=== PATIENT | female | born 1960 | race Caucasian/White ===

== ENCOUNTER → 2020-12-15 | Outpatient (CLI) | payer BC ==
[2016-08-21 12:48] VITALS: BP 123/61
[~2020-12-15] MED LIST: ACET325T9 PO; ATOR10TA60 PO; FLUT16SP NS; FLUT1BLS3 IH; GABA600T7 PO; HYDR-2765 PO; IBUP-1007 PO; MECL-75 PO; VENTOLIN HFA18 GM INH
--- NOTE | 2020-12-15 22:18 | KCIC ---
MRI left knee without contrast dated 12/15/2020. No comparison available. CLINICAL INDICATION: Pain and popping. TECHNIQUE: Routine multiplanar multisequence MR imaging of left knee performed. No contrast administered. FINDINGS: There is a geographic zone of serpiginous signal abnormality within the distal femoral diametaphysis centrally. Measures up to 6.1 cm craniocaudal dimension and extends to the level of the physeal scar. Additional serpiginous zones of signal abnormality in the posterior aspects of the medial and latera l femoral condyle. There is a similar-appearing focus within the medial tibial plateau. Associated mi ld patchy subchondral edema. Small serpiginous zone is also noted at the lateral femoral trochlea ant eriorly. Mild tricompartmental hypertrophic changes with mild thinning and surface irregularity of the articul ar cartilage throughout. Near full-thickness cartilage loss at the medial femoral trochlea and medial femoral condyle. There is a moderate size joint effusion. Moderate-sized popliteal cyst with fluid tracking along the medial head gastrocnemius muscle. No definite loose body. Anterior cruciate and posterior cruciate ligaments intact. Medial and lateral collateral complexes ar e intact. Iliotibial band, popliteus tendon and pes anserine complex within normal limits. Quadriceps and patellar tendon are intact. No abnormality of the medial or lateral retinaculum. There is mild patchy superficial infrapatellar edema, nonspecific. Complex signal at the posterior horn of medial meniscus with focal radial tear. There is also some li near extension of signal to the tibial articular surface near the posterior horn/body junction. Anter ior horn is intact. There is blunted morphology of the medial meniscal root. Lateral meniscus is normal in morphology and signal. IMPRESSION: 1. Multifocal areas of bone infarction/osteonecrosis involving the distal femur and proximal tibia as detailed above. 2. Complex tear posterior horn and body of medial meniscus. 3. Moderate size joint effusion with moderate-sized ruptured popliteal cyst. 4. Mild tricompartmental degenerative arthrosis and chondromalacia. Electronically signed by: Fahad Rivera MD (12/15/2020 10:15 PM) [id number]
== END ==
LOC: KCIC MRI 13:01
PROVIDERS: ATTEND Orthopaedic Surgery
DX: M17.12 Unilateral primary osteoarthritis, left knee (principal); M94.262 Chondromalacia, left knee; M25.462 Effusion, left knee
CPT/HCPCS: 73721

== ENCOUNTER → 2021-01-05 | Outpatient (CLI) | payer BC ==
[2016-08-21 12:48] VITALS: BP 123/61
== END ==
LOC: LAB 11:43
PROVIDERS: ATTEND Orthopaedic Surgery
DX: Z01.812 Encounter for preprocedural laboratory examination (principal); S83.232A Complex tear of medial meniscus, current injury, left knee, initial encounter; Z20.822 Contact with and (suspected) exposure to COVID-19; X58.XXXA Exposure to other specified factors, initial encounter; Y93.89 Activity, other specified; Y92.89 Other specified places as the place of occurrence of the external cause; Y99.8 Other external cause status
CPT/HCPCS: U0003

== ENCOUNTER 2021-01-09 12:03 | Day surgery (SDC) | payer BC ==
--- NOTE | 2021-01-08 13:15 | PDOC1 ---
History and Physical Date of Admission Date of Admission 01/09/21 Identification/Chief Complaint Chief Complaint left knee pain Source Source: Chart review, Patient History of Present Illness History of Present Illness 60-year-old woman with left knee pain. 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 She describes an injury several weeks ago with popping in her left knee while pushing off in moving between bleachers. She locates this pain medially with soreness and pain "up and down my leg". Her pain wakes her up at night. She takes ibuprofen, aspercreme with lidocaine, and acetaminophen, as prescribed by Dr. Ferguson, although this only helps for 2 hours. Denies any history of DVT or current smoking; she recently had a scan with a granite installer, Dr. Ambrose Gomez at [facility], that ruled out any clot but showed apparent D-Dimer elevation. No known clotting disorder. Past Medical History Cardiovascular: Hyperlipidemia Pulmonary: COPD Endocrine: Diabetes Past Surgical History Past Surgical History: No pertinent history Family History Family History mother Social History Smoke: Quit Current Medications Current Medications Current Medications Bupivacaine HCl/ Epinephrine Bitart (Sensorcain-Epi 0.25% Kit) 30 ml STK-MED ONCE .ROUTE ; Start 01/06/21 at 15:02; Stop 01/06/21 at 15:03; Status DC Fentanyl Citrate (Fentanyl 2ml Vial) 25 mcg PRN Q5MIN PRN IVP MILD PAIN 1-3; Start 01/09/21 at 06:00; Stop 01/10/21 at 05:59 Fentanyl Citrate (Fentanyl 2ml Vial) 50 mcg PRN Q5MIN PRN IVP MODERATE PAIN 4- 6; Start 01/09/21 at 06:00; Stop 01/10/21 at 05:59 Morphine Sulfate (Morphine Sulfate) 1 mg PRN Q10MIN PRN IVP SEVERE PAIN 7-10; Start 01/09/21 at 06:00; Stop 01/10/21 at 05:59 Ringer's Solution 1,000 ml @ 30 mls/hr Q24H IV ; Start 01/09/21 at 06:00; Stop 01/09/21 at 17:59 Hydromorphone HCl (Dilaudid) 0.5 mg PRN Q10MIN PRN IVP SEVERE PAIN 7-10, 2nd CHOICE; Start 01/09/21 at 06:00; Stop 01/10/21 at 05:59 Prochlorperazine Edisylate (Compazine) 5 mg PACU PRN PRN IVP NAUSEA, MRX1; Start 01/09/21 at 06:00; Stop 01/10/21 at 05:59 Cefazolin Sodium/ Dextrose 50 ml @ 100 mls/hr 1X PREOP PRN IV PRIOR TO PROCEDURE; Start 01/09/21 at 06:00; Stop 01/09/21 at 18:00 Active Scripts Active Meclizine Hcl 25 Mg Tablet 1 Tab PO PRN TID Reported Tylenol (Acetaminophen) 325 Mg Tablet 650 Mg PO PRN Q6-8HRS PRN Ibuprofen 600 Mg Tablet 600 Mg PO TID PRN Gabapentin 600 Mg Tablet 300 Mg PO HS Atorvastatin Calcium 10 Mg Tablet 10 Mg PO DAILY Trelegy Ellipta 100-62.5-25 (Fluticasone/Umeclidin/Vilanter) 1 Each Blst.w.dev 1 Puff IH DAILY Ventolin Hfa Inhaler (Albuterol Sulfate) 18 Gm Hfa.aer.ad 2 Puff INH PRN Q4-6HRS PRN Fluticasone Propionate Nasal [place] (Fluticasone Propionate) 16 Gm [place].susp 2 [place] NS DAILY Allergies Allergies: Coded Allergies: No Known Drug Allergies (Unverified , 08/21/16) Physical Exam General: Alert, Cooperative HEENT: Atraumatic Lungs: Normal air movement Heart: RRR Abdomen: Soft Extremities: Other (The LEFT knee shows normal alignment, no masses. There is no effusion. There is tenderness at the medial joint line. Rosa's test is po sitive. There is medial joint line pain with deep flexion and especially with rotation of the tibia. The lateral joint line shows no tenderness. Range of motion is 0-135 degrees. There is trace patellofemoral crepitus. The knee is stable to varus and valgus stress without subluxation or laxity. The ACL feels intact on Cony testing. Muscle strength is normal (5/5) for quadriceps and hamstrings, and muscle tone is normal. The skin is normal with no scars, rashes, lesions or ulcers. Light touch sensation is intact. No edema and no varicosities. Dorsalis pedis pulse is intact and capillary refill is normal.) [facility] [address] [place] [address] IMAGING REPORT Signed PATIENT: ANDREA MOREAU ACCOUNT: [id number] : 1960 LOCATION: [facility] AGE: 60 SEX: F EXAM STATUS: PRE CLI ORD. PHYSICIAN: ANASTASIA LINDA MD REASON: PROCEDURE: KNEE BILAT 2V Examination: 1. Bilateral AP standing knees. 2. Bilateral knees lateral and sunrise views. INDICATION: Bilateral knee pain. No known injury. No relevant comparisons FINDINGS: AP standing bilateral knees show minimal medial right knee joint space narrowing and osteophytic spurring on the medial femoral condyle but otherwise symmetric alignment with an osteochondroma incidentally present on the medial proximal tibial metaphysis in the right knee. [place] and lateral views of the right knee show small right joint effusion but the bones otherwise are unremarkable. Apart from a minimal medial joint space narrowing, no significant degenerative changes are appreciated in the right knee. The left knee likewise show smooth articular margins with preserved joint spaces. No significant left knee joint effusion. IMPRESSION: Minimal right knee medial compartment degenerative changes with a trace joint effusion and an incidental osteochondroma that could be evaluated in greater detail if it is a potential source of pain with MRI. The left knee is negative. Electronically signed by: Bartolome Serna MD (11/24/2020 1:19 PM) [id number] DICTATED and SIGNED BY: BARTOLOME SERNA MD DATE: 11/24/[address] [facility] [id number] [place] [id number] IMAGING REPORT Signed PATIENT: ANDREA MOREAU ACCOUNT: [id number] : 1960 LOCATION: [facility] MRI AGE: 60 SEX: F EXAM STATUS: REG CLI ORD. PHYSICIAN: ANASTASIA LINDA MD REASON: LEFT KNEE PAIN PROCEDURE: LOWER EXT JOINT WO LT MRI left knee without contrast dated 12/15/2020. No comparison available. CLINICAL INDICATION: Pain and popping. TECHNIQUE: Routine multiplanar multisequence MR imaging of left knee performed. No contrast administered. FINDINGS: There is a geographic zone of serpiginous signal abnormality within the distal femoral diametaphysis centrally. Measures up to 6.1 cm craniocaudal dimension and extends to the level of the physeal scar. Additional serpiginous zones of signal abnormality in the posterior aspects of the medial and lateral femoral condyle. There is a similar-appearing focus within the medial tibial plateau. Associated mild patchy subchondral edema. Small serpiginous zone is also noted at the lateral femoral trochlea anteriorly. Mild tricompartmental hypertrophic changes with mild thinning and surface irregularity of the articular cartilage throughout. Near full-thickness cartilage loss at the medial femoral trochlea and medial femoral condyle. There is a moderate size joint effusion. Moderate-sized popliteal cyst with fluid tracking along the medial head gastrocnemius muscle. No definite loose body. Anterior cruciate and posterior cruciate ligaments intact. Medial and lateral collateral complexes are intact. Iliotibial band, popliteus tendon and pes anserine complex within normal limits. Quadriceps and patellar tendon are intact. No abnormality of the medial or lateral retinaculum. There is mild patchy superficial infrapatellar edema, nonspecific. Complex signal at the posterior horn of medial meniscus with focal radial tear. There is also some linear extension of signal to the tibial articular surface near the posterior horn/body junction. Anterior horn is intact. There is blunted morphology of the medial meniscal root. Lateral meniscus is normal in morphology and signal. IMPRESSION: 1. Multifocal areas of bone infarction/osteonecrosis involving the distal femur and proximal tibia as detailed above. 2. Complex tear posterior horn and body of medial meniscus. 3. Moderate size joint effusion with moderate-sized ruptured popliteal cyst. 4. Mild tricompartmental degenerative arthrosis and chondromalacia. Electronically signed by: Fahad Rivera MD (12/15/2020 10:15 PM) [id number] DICTATED and SIGNED BY: FAHAD RIVERA MD DATE: 12/15/202208 VTE Prophylaxis Ordered VTE Prophylaxis Devices: Yes VTE Pharmacological Prophylaxi: Yes Assessment/Plan Assessment/Plan She does have osteonecrosis of the left femur which likely explains the elevated D-dimer. I believe the osteonecrosis itself is actually asymptomatic at this time. Her sharp medial knee pain is more typical of meniscus tear pathology pain, and she does have a meniscus tear on MRI. I recommend knee arthroscopy and meniscus surgery now, and follow her osteonecrosis with x-rays etc. at which point in the future she might require knee replacement surgery if the osteonecrosis progresses to the level of the joint. None of the osteonecrosis currently seems to cause any intra-articular symptoms. Her MRI shows a medial meniscus tear with periarticular osteonecrosis of her distal femur and proximal tibia. We reviewed her report with x-rays together and discussed the natural history of the condition. Specifically, my suspicion is her osteonecrosis is secondary to her history of chronic steroid use, and furthermore, her recently elevated D-Dimer levels would be explained by her osteonecrosis. Risks, benefits, and alternatives to treatment were reviewed, including the difference in indications between arthroscopic meniscectomy vs knee replacement. Although she will likely eventually warrant knee replacement with stemmed components, her symptoms seem almost completely meniscal in nature and I don't see any indication of collapse or further compelling reason to instead recommend knee replacement. After discussing options for treatment, she has elected to proceed with surgery. Plan for left knee arthroscopy with medial meniscectomy. We discussed potential risks of arthroscopic surgery, including risks of bleeding, infection, progressive arthritis, blood clots, or other potential surgical or anesthetic complications. We also discussed postoperative treatment and expectations including progression of arthritis following knee arthroscopy. All of her questions were answered and she desires to proceed with left knee arthroscopy and medial meniscectomy at a mutually convenient date Justifications for Admission Other Justification ANASTASIA LINDA MD Jan 08, 2021 13:15
[~2021-01-09] VITALS: Ht 162.6 cm; Wt 89.4 kg
[~2021-01-09 12:03] MED LIST changes: +BUPIVACAINE-EPI 0.25% 30 ML VIAL KIT. ONE; -HYDR-2765 PO; +HYDROmorphone 2 MG/ML VIAL IVP PRN; +IV RINGERS,LACTATED 1000ML 1,000 ML IV SCH; +MORPHINE SULFATE 2 MG/ML VIAL. IVP PRN; +PROCHLORPERAZINE 10 MG/2 ML VIAL. IVP PRN; +fentaNYL PF VIAL 100 MCG/2 ML VIAL IVP PRN
[2021-01-09] MEDS ORDERED: BUPIVACAINE-EPI 0.25% 30 ML VIAL KIT. ONE ×2 (12:52→12:53)
[2021-01-09] MEDS ORDERED: EPINEPHrine VIAL 30 MG/30 ML VIAL ONE (12:52)
[2021-01-09] MEDS ORDERED: LIDOCAINE 2% PF 5 ML VIAL. ONE (13:16)
[2021-01-09] MEDS ORDERED: PROPOFOL 10 MG/ML (20ML) VIAL. IV ONE (13:16)
[2021-01-09] MEDS ORDERED: fentaNYL PF VIAL 100 MCG/2 ML VIAL ONE ×3 (13:17→15:04)
--- NOTE | 2021-01-09 14:03 | PDOC4 ---
Operative Note Operative Note -D-a-t-e- -o-f- -A-h-p-a-c-p-u-r-e-:- -Q-r-g-r-u-a-r-y- -1-5-,- -2-0-2-1- -M-y-q----O-p- -P-y-a-r-l-m-s-i-s-:- - - -A-y-l-o-l-u-a-t-i--o-n- -o-f- -r-i-g-h-t- -d-s-b-o-v-q-h-y-p-f-p-n-c-u-l-a-r- -j-o-i-n-t-,- -1-0-0-%--- -2-0-0-%- -n-i-s-n-k-a-h-q-p-e-n-t-,- -m-b-d-t-i-a-l- -n-l-r-i-r-c-t-e-r- --- -S-4-3-.-1-2-1-A- -G-h-w-t----O-p- -Y-z-b-m-h-m-s-i-s-:- - - -A-a-s-e-d-o-a-t-i-o-n- -o-f- -r-i-g- -h-t- -n-k-r-f-g-r-w-w-p-l-c-b-c-u-l-a-r- -j-o-i-n-t-,- -1-0-0-%----2-0-0-%- -s-j-v-d-g-i-b-b-t-e-n-t-,- -f-z-f-t-i-a-l- -o-x-q-o-h-p-t-e-r- --- -S-4-3-.-1-2-1-A- -F-u-o-n-a-w-u-r-e-:- -O-p-e-n- -i-k-o-f-h-m-e-n-t- -o-f- -n-x-s-p-j-z-m-s-i-p-l-b-c-u-l-a-r- -j-o-i-n-t- -a-y-e-x-t-j-a-t-i-o-n-,- -C-P-T- -2-3-5-5-0- -G-e-x-g-e-o-n-:- - - -J-o-h-n- -N-.- -V-a-n-i-,- -M-D- -V-n-d-x-q-y-a-n-t-:- - - -S-c-o-t-t- -V-j-q-k-p-y-r-r-y- -F-A- -K-a-k-e-t-u-e-s-i-a-:- - - -W-n-n-e-r-a-l- -E-B-L-:- -5-0- -m-L- -Q-m-u-n-x-t-e-n-s- -G-z-k-a-i-n-e-d-:- - - -n-o-n-e- -R-f-e-b-l-i-d-t-d-i-o-n-s-:- - - -n-o-n-e- -E-g-a-i-n-s-:- -n-o-n-e- -D-s-w-h-n-m-t-i-o-n-s- -f-o-r- -W-w-q-f-r-r-u-r-e-:- - - -T-h-i-s- -f-t-m-i-e-n-t- -i-s- -a- -3-4- ---t-h-m-r---o-l-d- -w-i-t-h- -r-i-g-h-t- -z-m-t-u-l-d-e--r- -w-w-e-c-a-o-p-y-k-q-v-b-c-u-l-a-r- -j-o-i-n-t- -k-v-f-m-z-m-a-t-i-o-n- -n-r-q-u-r-y- -w-h-i-c-h- -u-c-d-u-r-r-e-d- -i-n- -T-n-e-u-a-r-y-,- -l-a-s-t- -m-o-n-t-h-.- - - -H-e- -h-a-s- -a- -m-h-l-c-j-b-c-e-d- -c-j-l-h-t-n-a-s-m-q-b-j-c-u-l-a-r- -j-o-i-n-t- -p-n-z-e-l-y- -a- -g-r-a-d-e- -5- -z-e-p-h-e-r- -t-h-a-n- -g-r-a-d-e- -3-.- -W-e- -f-o-i-i-e-w-e-d- -h-i-s- -x----r-a-y-s- -v-q-n-e-t-h-e-r- -a-n-d- -g-l-c-w-u-z-s-e-d- -t-h-e- -m-u-v-u-r-a-l- -t-a-v-t-o-r-y- -o-f- -t-h-e- -m-v-w-v-e-p-i-o-n- -a-s- -w-e-l-l- -a-s- -t-h-e- -r-i-s-k-s-,- -g-f-q-e-f-i-t-s-,- -a-n-d- -q-y-u-u-v-x-y-b-o-v-e-s- -t-o- -d-q-b-p-m-h-e-n-t-.- -G-i-v-e-n- -t-h-e- -i-g-m-e-n-t- -o-f- -h-i-s- -n-i-u-f-h-v-a-t-i-o-n- -a-n-d- -q-g-j-l-u-r-e- -o-f- -m-o-r-e- -b-m-w-y-d-v-n-g-o-i-v-e- -t-v-w--s-u-r-e-s-,- -m-y- -z-m-m-m-m-o-o-w-t-a-t-i-o-n- -i-s- -o-s-a-g-e-r-y-.- -P-l-a-n- -f-o-r- -r-i-g-h-t- -a-u-t-u-l-d-e-r- -o-p-e-n- -n-v-j-t-a-l- -o-q-i-v-i-c-l-e- -b-c-z-i-s-i-o-n- -a-n-d- -g-w-c-v-b-a-x-k-d-i-r-f-u-l-a-r- -v-m-r-a-m-e-n-t- -s-l-d-a-i-r- -o-r- -c-a-t-t-z-v-c-g-q-c-t-i-o-n- -w-i-t-h- -P-f-d-h-r-e-x- -D-o-g- -B-o-n-e- -Y-i-t-t-o-n-.- -W-e- -i-t-d-t-g-k-s-e-d- -t-h-e- -x-b-a-o-t-y-i-a-l- -r-i-s-k-s- -o-f- -b-m-p-c-r-d-i-o-n-,- -f-j-v-l-m-b-t-v-o-u-l-a-r- -k-p-h-u-r-y-,- -p-w-r-c-t-u-r-e-,- -b- -e-d-p-d-i-n-g-,- -n-e-e-d- -f-o-r- -f-e-d-i-s-i-o-n- -k-n-a-g-e-r-y-,- -o-r- -o-t-h-e-r- -s-o-v-w-n-h-i-a-l- -z-a-b-g-i-c-a-l- -o-r- -z-q-s-b-p-u-e-t-i-c- -s-n-y-s-g-i-r-r-y-i-o-n-s-.- -W-e- -a-l-s-o- -k-q-p-i-c-p-s-e-d- -b-d-k-x-w-b-m-w-v-t-i-v-e- -v-q-f--h-x-h-e-n-t- -a-n-d- -e-n-z-p-r-n-v-r-s-o-n-s- -q-s-v-s-d-b-i-n-g- -u-s-e- -o-f- -a- -u-x-p-m-i-i-c-l-y-t-i-v-e- -o-v-e-r- -t-h-e- -t-u-o-u-l-d-e-r- -s-l-i-n-g-.- -A-l-l- -o-f- -h-i-s- -h-g-x-g-o-n-o-n-s- -w-e-r-e- -w-y-e-w-e-r-e-d- -a-n-d- -h-e- -h-d-r-i--r-e-s- -t-o- -u-r-n-c-e-e-d- -w-i-t-h- -a-r-r-g-e-r-y-.- - - -D-z-j-p-p-d-a-t-e-l-y- -h-r-u-l-h-g-k-d-n-i-v-e-l-y- -I- -u-f-i-n-k-c-s-e-d- -w-i-t-h- -h-i-m- -t-h-e- -o-w-f-s-i-b-l-e- -n-e-e-d- -f-o-r- -a-n- -i-o-u-l-v-k-a-f-t- -f-o-r- -c-u-g-u-y-n-h-w-g-c-t--i-o-n-,- -n-b-b-h-o-u-g-h- -s-i-n-c-e- -t-h-e- -h-u-s-u-r-y- -w-a-s- -l-e-s-s- -t-h-a-n- -6- -w-e-e-k-s- -a-g-o- -I- -a-m- -f-m-z-e-f-u-l- -t-h-a-t- -w-e- -c-a-n- -d-o- -a- -i-j-k-e-c-t- -g-e-n-a-i-r- -o-f- -t-h-e- -p-u-n-y-i-c-j-i-i-d-t-u-u-l-a-r- -z-j-h--p-n-m-n-t-s-.- -J-r-d-o-u-l-u-r-e- -i-n- -O-v-v-a-i-l-:- -T-h-e- -l-g-t-i-e-n-t- -w-a-s- -w-h-f-t-h-o-f-i-e-d- -i-n- -t-h-e- -i-l-o-f-n-f-v-y-e-i-v-e- -e-q-n-d-i-n-g- -a-r-e-a-.- - - -T-h-e- -i-z-o-r-e-c-t- -r-i-g-h-t- -l-w-k-u-l-d-e-r- -w-a-s- -h-e-s-k-e-d- -b-y- -m-e-.- - - -H-e- -w-a-s- -t-a-k-e-n- -t-o- -t-h-e- -o-i-k-g-a-l-i-n-g- -r-o-o-m- -w-h-e-r-e- -a- -d-v-u-e-r-a-l- -w-o-m-v-m-n-e-t-i-c- -w-a-s- -u-s-e-d-.- - - -E-y-y-t-v-w-q-l-f-i-v-e- -c-e-u-x-a-h-o-t-i-c-s- -w-e-r-e- -g-i-v-e-n- -t-p-d-j-r-i-o-t-r-u--s-l-y-.- - -T-h-e- -w-y-w-i-e-n-t- -w-a-s- -p-c-r-m-i-o-o-n-e-d- -i-n- -t-h-e- -d-r-m-h-z-r-h-a-i-r- -d-b-p-i-t-i-o-n- -w-i-t-h- -t-h-e- -b-o-n-y- -g-c-j-y-t-t-e-n-c-e-s- -l-z-a-l----t-a-i-d-e-d-.- - - -T-h-e- -a-r-m- -w-a-s- -u-w-o-p-a-r-e-d- -c-r-z-d-f-r-f--w-o-s-u-m-t-a-l-l-y- -w-i-t-h- -O-u-g-o-v-s-P-r-e-p- -b-v-j-u-t-i-o-n- -f-r-o-m- -t-h-e- -a-a-z-u-l-d-e-r- -t-o- -t-h-e- -z-e-t-v-t-x-t-i-p-s-,- -a-n-d- -t-h-e-n- -e-i-n-r-i-l-e- -s-m-q-p-e-s- -w-e-r-e- -h-x-q-l-i-e-d-.- - - -A-n- -l-d-u-u-f-c-i-o-u-s- -s-t- -z-x-l-v-y-i-t-t-e- -w-a-s- -f-f-e-c-e-d- -o-v-e-r- -t-h-e- -l-o-w-e-r- -a-r-m-,- -a-n-d- -a- -l-p-w-d-e-r- -a-r-m- -p-b-w-d-e-r- -w-a-s- -u-s-e-d-.- -T-h-e- -q-h-l-v-m-p-e-n-t- -A-C- -j-o-i-n-t- -w-a-s- -u-s-e-d- -a-s- -a- -b-h-z-d-m-a-r-k-,- -a-n-d- -t-h--e- -i-c-q-a-c-o-i-d- -w-a-s- -a-b-l-e- -t-o- -b-e- -n-j-m-p-a-t-e-d-.- - - -A- -1-0- -b-l-a-d-e- -k-s-v-l-p-e-l- -w-a-s- -u-s-e-d- -t-o- -m-a-k-e- -a- -t-j-m-p-p-u-w-m-c-n-a-l- -z-i-r-i-s-i-o-n- -a-l-o-n-g- -t-h-e- -m-f-x-m-m-a-q-b-b-l-l-z-u-l-a-r- -a-b-g-a--m-e-n-t- -b-h-e-i-o-n-.- - - -S-h-a-r-p- -r-f-d-j-j-v-t-i-o-n- -w-a-s- -u-s-e-d- -a-n-d- -B-o-v-i-e- -a-u-s-z-k-e-p-m-t-u-t-e-r-y- -w-a-s- -u-s-e-d- -f-o-r- -x-v-x-j-d-e-a-s-i-s-.- - - -T-h-e- -a-l-u-t-a-l- -f-k-y-v-i-c-l-e- -w-a-s- -v-e-r-y- -j-e-v-c-q-k-e-n--t- -a-n-d- -k-s-t-s-h-q-t-e-d-.- - - -T-h-e- -y-m-a-c-i-a- -o-f- -t-h-e- -m-d-a-t-o-i-d- -w-a-s- -a-n-d- -w-h-r-t-o-i-d- -a-n-d- -e-w-m-m-r-s-a-l-i-s- -w-e-r-e- -z-m-g-r-j-u-l-l-y- -j-z-p-v-a-t-e-d- -f-r-o-m- -t-h-e- -e-s-q-t-a-l- -m-l-b-v-i-c-l-e-.- - - -1- -c-m- -o-f- -v-y-g-t-a-l- -r-e-z-v-i-c-l-e- -w-a-s- -s-n-u-i-s-e-d- -w-i-t-h- -t-h-e- -b-o-b-t-j-y-n-f-k-t-t-a-l- -s-a-w-,- -a-n-d- -p-s-g-o-b-s-i-n-g- -o-f- -t-h-e- -b-o-n-e- -w-a-s- -z-f-r-w-z-k-m-e-d- -t-o- -v-f-m-v-e-n-t- -a-n-y- -s-h-a-r-p- -e-d-g-e-s--.- - - -N-x-g-t-h-e-r- -b-k-f-l-f-g-t-i-o-n- -e-p-l-t-a-l-l-y- -t-k-x-w-e-d- -t-h-e- -j-j-e-a-c-o-i-d-,- -a-s- -t-h-e- -m-r-i-y-q-k-a-l-i-s- -w-a-s- -p-j-t-i-d-e-d-.- - - -N-z-n-j-i-l-t-o-r-s- -w-e-r-e- -v-p-l-c-e-d- -d-u-t-u-n-d- -t-h-e- -o-p-q-a-c-o-i-d- -a--n-d- -i-t- -w-a-s- -w-e-l-l- -p-i-d-u-k-d-i-z-e-d-.- -T-h-e- -X-x-p-h-r-e-x- -A-C- -j-o-i-n-t- -g-u-i-d-e- -w-a-s- -u-s-e-d-,- -a-n-d- -v-y-n-c-e-d- -w-p-o-e-a-t-h- -t-h-e- -f-i-w-a-c-o-i-d-.- - - -T-h-e- -a-n-g-l-e- -w-a-s- -s-e-t- -a-t- -7-5- -a-a-l-r-e--e-s-.- - - -T-h-e- -s-f-v-x-i-m-a-l- -d-r-i-l-l- -g-u-i-d-e- -w-a-s- -r-p-z-c-e-d- -i-n- -t-h-e- -v-o-u-t-e-r- -o-f- -t-h-e- -q-d-q-i-d-u-a-l- -o-k-l-t-a-l- -s-w-e-v-i-c-l-e-,- -a-b-o-u-t- -1- -c-m- -f-r-o-m- -t-h-e- -v-v-a-t-a-l- -c-u-t- -a-n-d-.- - - -T-h-e- -3- -m-m- -o-m-z-a-t-v-a-t-e-d- -d-r-i-l-l- -p-i-n- -w-a-s- -s-h-v-l-l-e-d- -g-d-v-o-u-g-h- -t-h-e- -r-f-k-o-m-i-o-n- -a-n-d- -l-a-f-o-u-g-h- -t-h-e- -b-a-s-e- -o-f- -t-h-e- -o-f-d-v-i-c-l-e-.- - - -T-h-e- -l-a-r-g-e- -i-m-a-g-e- -n-k-g-v-u-b-i-f-i-e-r- -C- -a-r-m- -w-a-s- -u-s-e-d- -t-o- -c-e-t-f-i-r-m- -q-s-e-e-c-a-e-n-t- -o-f- -t-h-e- -g-u-i-d-e- -a-n-d- -d-r-i-l-l- -p-i-n-.- -T-h-e- -x-i-a-t-e-r- -p-s-j-c-a-r- -o-f- -t-h-e- -d-r-z-l-d-l-a-t-e-d- -d-r-i-l-l- -b-i-t- -w-a-s- -f-l-b-o-v-e-d-.- - - -A- -s-u--t-u-r-e- -l-a-s-s-o- -w-i-r-e- -l-o-o-p- -w-a-s- -n-o-w- -x-v-g-s-e-d- -h-t-c-o-u-g-h- -t-h-e- -r-o-a-i-f-k-a-t-e-d- -d-r-i-l-l- -p-i-n-.- - - -T-h-i-s- -w-a-s- -b-m-d-f-q-z-v-e-d- -w-i-t-h- -a- -h-u-w-u-r-e- -k-k-w-s-p-e-r-,- -a-t- -t-h-e- -z-g-e-x-y-s-u-r--f-a-c-e- -o-f- -t-h-e- -r-d-f-a-c-o-i-d-,- -a-n-d- -i-v-w-u-g-h-t- -b-a-c-k- -u-p- -i-n-t-o- -t-h-e- -m-z-d-i-s-i-o-n-.- - - -T-h-e- -d-r-i-l-l- -p-i-n- -w-a-s- -a-e-g-o-v-e-d-.- - - -T-h-e- -I-x-b-h-r-e-x- -d-o-g- -b-o-n-e- -w-i-t-u-r-e- -t-a-i-l-s- -w-e-r-e- -n-o-w- -h-f-o-c-e-d- -i-n-t-o- -t-h-e- -l-a-s-s-o-,- -a-n-d- -o-s-p-s-j-p-v-e-d- -a-f-t-e-r- -t-h-e-y- -h-a-d- -r-f-e-s-e-d- -b-e-q-o-u-g-h- -t-h-e- -l-s-x-a-c-o-i-d- -a-n-d- -u-a-i-o-u-g-h- -t-h-e- -d-s-z-v-i-c-l-e-.- - - -T-h-e- -l-a-r-g-e- -i-m-a-g-e- -y-t-z-q-x-f-i-f-i-e-r- -w-a-s- -a-g-a-i-n- -u-s-e-d- -t-o- -s-x-h-f-i-r-m- -t-h-e- -v-g-r-i-t-i-o-n- -o-f- -t-h-e- -d-o-g- -b-o-n-e- -n-c-l-i-c-e- -a-t- -t-h-e- -q-e-a-e-r-i-o-r- -q-s-k-v-i-c-l-e-.- - - -M-y- -o-n-l-i-p-v-a-n-t- -n-o-w- -h-e-l-d- -t-h-e- -d--i-s-t-a-l- -t-q-x-v-i-c-l-e- -t-g-r-u-c-e-d-,- -a-n-d- -w-e- -m-k-s-v-a-t-e-d- -t-h-e- -k-q-k-u-l-d-e-r- -t-o- -h-e-l-p- -i-u-g-u-c-e- -t-h-e- -t-y-y-z-l-j-q-r-c-z-m-r-u-l-a-r- -r-q-a-t-a-n-c-e- -a-n-d- -m-n-p-u-c-e- -t-h-i-s- -t-o- -a-n- -s-x-m-t-o-m-i-c- -x-u-v-x-p-c-e-n-t-.- - - -T-h-e- -o-v-m-u-r-e-s- -w-e-r-e- -r-n-r-p-u-x-l-s-r-a-l-l-y- -t-i-e-d-,- -a-n-d- -t-h-e- -l-a-r-g-e- -i-m-a-g-e- -x-q-n-t-m-b-i-f-i-e-r- -w-a-s- -u-s-e-d- -t-o- -i-g-q-f-i-r-m- -t-h-e- -p-n-r-g-s-t-i-o-n-.- - - -Z-h-r-t-h-e-r- -t-h- -r-o-w-s-,- -c-h-e-e-r-s-e- -h-a-l-f- -d-o-c-c-h-e-s- -w-e-r-e- -u-s-e-d- -f-o-r- -k-n-o-t- -u-e-s-u-r-i-t-y- -o-f- -t-h-e- -f-i-b-e-r- -t-a-p-e- -t-a-i-l-s-.- - - -T-h-e- -t-a-i-l-s- -w-e-r-e- -k-r-f-m-m-e-d-.- -L-s-a-a-l-l-y- -I- -d-i-d- -t-b-y-e-c-t- -r--e-p-a-i-r- -o-f- -t-h-e- -j-s-d-p-j-i-d-f-f-u-r-h-u-l-a-r- -c-j-h-q-h-j-n-t-s- -u-s-i-n-g- -#-2- -H-o-t-o-e-K-i-r-e- -k-q-n-u-r-e-s- -i-n- -a- -p-l-a-t-u-o---o-f---e-i-g-h-t- -m-b-q-u-r-e- -m-j-k-t-e-r-n-.- - - -T-h-e-s-e- -s-d-v-e-a-r-e-d- -z-h-s-l-s-e-d- -f-r-o-m- -t-h-e- -o-d-s-a-c-o-i-d- -s-i-d-e-,- -a-n-d- -t-h-e-y- -w-e-r-e- -a-b-l-e- -t-o- -b-e- -m-v-r-s-i-s-x-e-h-m-a-t-e-d- -j-n-p-h-o-u-t- -u-q-g-p-m-z-u-l-t-y-.- -R-v-f-i-o-u-s- -g-r-u-i-n-e- -b-j-j-i-q-f-t-i-o-n- -w-a-s- -u-s-e-d-.- - - -T-h-e- -d-e--l-t-o-i-d- -z-k-j-c-i-a- -a-n-d- -t-s-s-h-l-r-a-l-i-s- -r-t-w-c-i-a- -w-e-r-e- -y-a-t-a-i-r-e-d- -a-t- -t-h-e- -e-y-e-v-i-c-l-e- -u-s-i-n-g- -#-0- -F-w-d-r-y-l- -y-m-p-u-r-e- -o-f- -8- -c-z-x-u-r-e-s-.- - - -I-l-u-u-r-e- -d-b-j-a-i-r- -w-a-s- -g-m-v-a-i-n-e--d-.- -M-y- -q-h-u-f-h-a-a-n-t- -y-s-p-s-e-d- -t-h-e- -p-q-k-i-g-f-p-i-o-o-u-s- -d-d-l-s-u-e-s- -w-i-t-h- -#-2----0- -T-u-m-r-y-l-,- -a-n-d- -r-c-m-a-i-r-e-d- -t-h-e- -s-k-i-n- -w-i-t-h- -#-3----0- -R-j-q-j-c-t-f-i-x- -V-a-a-o-c-r-y-l- -z-t-n-u-r-e-.- - - -L--o-c-a-l- -o-v-e-h-n-x-e-t-i-c- -w-i-t-h- -w-v-k-v-z-x-h-r-i-n-e- -w-a-s- -k-w-b-e-c-t-e-d- -i-n-t-o- -t-h-e- -s-k-i-n- -e-d-g-e-s-.- - - -J-y-g-d-l-e- -a-n-d- -i-s-k-n-g-e- -n-b-e-n-t-s- -w-e-r-e- -m-r-f-r-e-c-t-.- - - -T-h-e-r-e- -w-e-r-e- -n-o- -n-j-y-a-r-e--n-t- -h-y-n-m-a-f-p-f-y-i-o-n-s-.-(above op note filed to wrong chart, op note below is correct) Date of Procedure: January 09, 2021 Preoperative Diagnosis: left knee medial meniscus tear Postoperative Diagnosis: complex tear of medial meniscus, current injury, left knee, initial encounter S83.232A Procedures Performed: left knee arthroscopy, surgical, with meniscectomy, MEDIAL, including meniscal shaving, including debridement/shaving of articular cartilage (chondroplasty) CPT 17911 Surgeon: Anastasia Jay MD Environmental Control Administrator: NATHAN Hobbs Anesthesia: General Estimated Blood Loss: 25 mL Specimens: none Drains: none Complications: none Tourniquet time: 22 minutes at 300 mm Hg Indications for Procedure: The patient is a 60-year-old with left knee pain, unrelieved with nonoperative treatment. Exam and MRI are consistent with a meniscus tear. She also has osteonecrosis in the distal femur but nothing that involves the joint and I do not believe it is the cause of the current symptoms. She does have a radial root tear of the medial meniscus which in my experience is a very painful meniscus tear and does well with arthroscopic meniscectomy. We talked about the risks and benefits of proceeding with an arthroscopic procedure. We talked about potential risks of ongoing pain, progressive arthritis, bleeding, infection, blood clots, or other potential surgical or anesthetic complications. All of the patient's questions about surgery were answered and they desired to proceed. Written consent was obtained. Description of Operation: The patient was identified in the preoperative holding area. The correct left knee was marked by me. The patient was taken to the operating room, where a general anesthetic was used. Preoperative antibiotics were given intravenously. A time-out procedure was performed. A tourniquet was placed on the upper thigh. Local anesthetic 20 mL of 0.25% bupivacaine was injected using sterile technique into the knee joint. The limb was prepared circumferentially with Chl oraPrep solution and sterile waterproof arthroscopy drapes were applied. The limb was exsanguinated with an Esmarch bandage and the tourniquet was inflated. Lateral and medial arthroscopy portals were established. The medial meniscus showed a complex unrepairable tear with unstable flaps. 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 There is no evidence of osteonecrosis at the level of the joint. The intercondylar notch was free of loose bodies, and the ACL was intact. The lateral tibiofemoral joint showed a normal lateral meniscus, so no lateral meniscectomy was required. The lateral articular surfaces showed normal articular surfaces so no chondroplasty was required. The patellofemoral joint showed chondromalacia [place] grade I, so no chondroplasty was required. The suprapatellar pouch, medial and lateral gutters were free of loose bodies. Copious irrigation was used to drain all meniscal and chondral fragments, and the knee was drained of fluid. The portals were closed with #3-0 Prolene interrupted sutures. Additional local anesthetic, 30 mL of 0.25% bupivacaine with epinephrine was injected. A bulky sterile dressing was applied and the tourniquet was released. Needle and sponge counts were correct and there were no apparent complications. ANASTASIA JAY MD Jan 09, 2021 14:03
[2021-01-09] MEDS ORDERED: DEXAMETHASONE SOD PHOS 4 MG/ML VIAL ONE (14:06)
[2021-01-09] MEDS ORDERED: ONDANSETRON PF 4 MG/2 ML VIAL. ONE ×2 (14:06→16:15)
[2021-01-09] MEDS ORDERED: SEVOFLURANE 61 TO 120 MINUTES. IH ONE (14:37)
[2021-01-09] MEDS ORDERED: MORPHINE SULFATE 2 MG/ML VIAL. ONE (15:28)
[2021-01-09 15:30] VITALS: BP 108/52
[2021-01-09] MEDS ORDERED: HYDROcodone/APAP 7.5/325MG 1 TAB TABLET ONE (15:49)
[2021-01-09] MEDS ORDERED: HYDR-2765 PO ×2 (15:57→15:58)
[2021-01-09] MEDS ORDERED: HYDROcodone/APAP 7.5/325MG 1 TAB TABLET PO PRN ×2 (16:00)
[2021-01-09] MEDS ORDERED: ONDANSETRON PF 4 MG/2 ML VIAL. IVP ONE (16:30)
== END 2021-01-09 16:40 | disposition home or self-care (01) ==
LOC: SURG 12:03
PROVIDERS: ATTEND Orthopaedic Surgery
DX: S83.232A Complex tear of medial meniscus, current injury, left knee, initial encounter (principal); J44.9 Chronic obstructive pulmonary disease, unspecified; E78.00 Pure hypercholesterolemia, unspecified; Z87.891 Personal history of nicotine dependence; Z79.899 Other long term (current) drug therapy; Z98.890 Other specified postprocedural states; Z72.89 Other problems related to lifestyle; X58.XXXA Exposure to other specified factors, initial encounter; Y93.89 Activity, other specified; Y92.89 Other specified places as the place of occurrence of the external cause; Y99.8 Other external cause status
CPT/HCPCS: 29881; J0171; J0690; J1100; J2270; J2405; J2704; J3010